=== PATIENT | male | born 1940 | race Two or more races ===

== ENCOUNTER 2019-11-25 05:33 | Day surgery (SDC) | payer OTHER ==
[~2019-11-25 05:33] MED LIST: CLONAZEPAM1 MG PO; LOSARTAN PO; SIMVASTATIN PO
[2019-11-25] MEDS ORDERED: PERCOCET 5-3251 EACH PO (09:26)
== END 2019-11-25 12:35 | disposition home or self-care (01) ==
LOC: CIR.AMB 05:33
PROVIDERS: ATTEND Surgery
DX: C73 Malignant neoplasm of thyroid gland (principal); Z20.828 Contact with and (suspected) exposure to other viral communicable diseases